=== PATIENT | female | born 1990 | race Caucasian/White ===

== ENCOUNTER 2019-10-24 10:29 | Observation (INO) | payer BC ==
[2019-10-24 11:40] VITALS: BMI 40.4
[2019-10-24] MEDS ORDERED: Dextrose 50% Abboject 50 ML SYRINGE SLOW IVP PRN (11:48)
[2019-10-24] MEDS ORDERED: Dextrose 5% in Water 1,000 ML IV PRN (11:48)
[2019-10-24] MEDS ORDERED: Ondansetron PF 4 MG/2 ML Vial IVP PRN (11:48)
[2019-10-24] MEDS ORDERED: traMADol HCl 50 MG TAB PO PRN (12:07)
[2019-10-24] MEDS ORDERED: Acetaminophen 325 MG TAB PO SCH (12:30)
--- NOTE | 2019-10-24 14:04 | RAD ---
XR Hand Lt 3 View STANDARD: 10/24/2019 1:39 PM CLINICAL INDICATION: History of fifth digit metacarpal fracture COMPARISON: None. FINDINGS: Bones: There is a minimally displaced comminuted intra-articular fracture involving the small finger metacarpal base. There is soft tissue swelling near this site. No additional acute osseous abnormality is evident. Joints: Joint spaces are preserved. Soft Tissue: Soft tissue swelling overlying the base of the small finger metacarpal IMPRESSION: Minimally displaced comminuted, intra-articular small finger metacarpal base fracture.
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
[2019-10-24] MEDS ORDERED: Ibuprofen 600 MG TAB PO PRN (15:18)
[2019-10-24] MEDS: Acetaminophen 325 MG TAB PO SCH ×2 (17:58→23:21)
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
[2019-10-25] MEDS: Acetaminophen 325 MG TAB PO SCH ×2 (05:38→13:14)
[2019-10-25 05:53] LABS: #Eosinphils 0.1 thou/uL (0.0-0.7); #Lymphocytes 2.1 thou/uL (1.20-3.40); #Monocytes 1.1 thou/uL (0.11-0.59); #Neutrophils 8.5 thou/uL (1.40-6.50); %Basophils 0.1 % (0.0-1.0); %Eosinophils 0.5 % (0.0-10.0); %Lymphocytes 17.8 % (21.0-51.0); %Neutrophils 72.5 % (42.0-75.0); Hemoglobin 13.1 g/dL (12.0-16.0); Mean Corpuscular HGB CONC 34.2 g/dL (32.0-36.0); Mean Corpuscular Hemoglobin 32.2 pg (27.0-31.0); Mean Platelet Volume 7.3 fL (7.4-10.4); Platelet Count 262 thou/uL (130-400); RBC Distribution Width 11.3 % (11.5-14.5); Red Blood Cell (RBC) Count 4.08 mill/uL (4.20-5.40); White Blood Cell (WBC) Count 11.8 thou/uL (4.8-10.8)
[2019-10-25 06:20] LABS: Anion Gap 10 mmol/L (10-20); BUN (Urea Nitrogen) 6 mg/dL (7.0-18.7); Calc. Creatinine Clearance 185 mL/min (70-130); Calcium 8.8 mg/dL (7.8-10.44); Carbon Dioxide 23 mmol/L (22-29); Chloride 108 mmol/L (98-107); Estimated GFR-MDRD Greater than 90; Glucose 99 mg/dL (70-105); Sodium 137 mmol/L (136-145)
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
[2019-10-25 11:58] VITALS: BP 105/72; TEMP 98.5
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
== END 2019-10-25 15:35 | disposition home or self-care (01) ==
LOC: SURG A 11:38
PROVIDERS: ADMIT Surgery; ATTEND Surgery
DX: K66.1 Hemoperitoneum (principal); S62.307A Unspecified fracture of fifth metacarpal bone, left hand, initial encounter for closed fracture; S93.402A Sprain of unspecified ligament of left ankle, initial encounter; V89.2XXA Person injured in unspecified motor-vehicle accident, traffic, initial encounter
CPT/HCPCS: 36415; 80048; 85025; 96374; G0378; J2405

== ENCOUNTER 2025-08-08 10:34 | Outpatient (CLI) | payer BC | END 2025-08-08 10:35 | disposition home or self-care (01) | LOC: BICRAD 10:34 | PROVIDERS: ATTEND Family Medicine | DX: M25.531 Pain in right wrist (principal) ==